=== PATIENT | female | born 1990 ===

== ENCOUNTER 2019-02-21 13:00 | Inpatient (IN) | payer OTHER ==
[2019-02-24] MEDS ORDERED: LEVO-T200 MCG PO (08:07)
== END 2019-02-26 15:52 | disposition home or self-care (01) | DRG 788 ==
LOC: O/R 13:00 → LDR 02-23 03:28 → OB/GYN 02-23 03:28 → O/R 02-23 13:00 → OB/GYN 02-23 15:40
PROVIDERS: ADMIT Obstetrics & Gynecology
PROC: 10907ZC Drainage of Amniotic Fluid, Therapeutic from Products of Conception, Via Natural or Artificial Opening (ICD-10-PCS; 2019-02-23)
PROC: 3E033VJ Introduction of Other Hormone into Peripheral Vein, Percutaneous Approach (ICD-10-PCS; 2019-02-23)
PROC: 4A1HXCZ Monitoring of Products of Conception, Cardiac Rate, External Approach (ICD-10-PCS; 2019-02-23)
PROC: 10D00Z1 Extraction of Products of Conception, Low, Open Approach (ICD-10-PCS; principal; 2019-02-23 12:00)
DX: O82 Encounter for cesarean delivery without indication (principal); O76 Abnormality in fetal heart rate and rhythm complicating labor and delivery; Z3A.41 41 weeks gestation of pregnancy; Z37.0 Single live birth